=== PATIENT | female | born 1990 | race African-American/Black ===

== ENCOUNTER → 2017-01-09 | Outpatient (CLI) | payer BC ==
--- NOTE | 2017-01-09 17:29 | Diagnostic Imaging Report ---
INDICATION: Menorrhagia. Dyspareunia. TECHNIQUE: Multiple real-time grayscale sonographic images were obtained of the pelvis transabdominally and transvaginally. CORRELATION STUDY: None. FINDINGS: UTERUS/ENDOMETRIUM: Uterus measures 8.2 x 4.6 x 4.3 cm. Endometrial thickness is 9 mm. The uterus and endometrium appearing unremarkable. RIGHT OVARY: 2.8 x 3.9 x 2.4 cm. LEFT OVARY: 3.0 x 4.1 x 3.6 cm. Irregularly marginated hypoechoic mass in the left ovary may be reflective of a collapsing/ruptured cyst. This measures 2.3 x 2.1 cm. Right ovary is unremarkable. Vascular flow is demonstrated to both ovaries. There is presence of free pelvic fluid. IMPRESSION: 1. Probable complex cyst perhaps a ruptured cyst or collapsing cyst in the left ovary with small amount of free pelvic fluid. Consideration for follow-up imaging after 2-3 menstrual cycles would be recommended for reassessment. Dictated by: Dictated on workstation # [id number]
== END ==
LOC: RAD 13:06
PROVIDERS: ATTEND Obstetrics & Gynecology
DX: N83.202 Unspecified ovarian cyst, left side (principal)
CPT/HCPCS: 76830; 76856